=== PATIENT | female | born 1940 | race Caucasian/White ===

== ENCOUNTER 2020-11-30 12:42 | Observation (INO) ==
--- NOTE | 2020-11-29 11:19 | Anesthesiology Consultation ---
Date of Service November 29, 2020 Assessment & Plan (1) Encounter for pre-operative examination: Chart Review Chart Review: Acceptable Risk for Surgery (pending CBC/UA results and DOS labs ) and Patient NOT seen in Pre Admission Testing Awaiting CBC with diff, electrolytes, UA to result in [facility]. Will order PRP (not done preoperatively) and coags (for PNB- pt on anticoagulation) for DOS Per surgeon's letter of medical necessity 11/29/2020 = " urgent surgery, unable to wait 3 to 4 days for Covid swabankle fracture." Per nursing assessment 11/29/2020, patient denies any recent travel. No known Covid infection in the past 90 days. No known Covid positive contacts or Covid related symptoms. Preop Covid testing done 11/28/2020 at [facility]= results pending. Per [facility]- Covid test results should be back by 11/30/20 (pt was made last case). If Covid results NOT back by patient's hosptial arrival time- would recommend Cepheid test DOS. Pt is low travel risk. Will leave to anesthesiologist discretion if additional PPE and/or surgery time needed. Last seen by cardiology 09/15/2020 = patient presents for follow-up. Feels short of breath especially if rushed around. 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 A. fib/flutter diagnosed 2019on metoprolol and amiodarone. IVCD, hypertension, CALEB on CPAP, HLD, mood disorder, left shoulder arthritis. Cardio feels shortness of breath may be due to her trying to hedrick and patient may need to accept that she needs to take her time. PFTs ordered. Continue current pacemaker checks. Continue current medication. Follow-up in 1 year. History Surgery Operation Date: 11/30/20 15:30 Proposed Procedures p Right Open Reduction Internal Fixation Ankle - Hernesto Lowe MD Height/Weight Height: 5 ft 3 in Weight: 86.183 kg Allergies Allergy/AdvReac Type Severity Reaction Status Date / Time amoxicillin Allergy Intermediate HIVES Verified 11/29/20 10:39 nitrofurantoin AdvReac Mild GI UPSET Verified 11/29/20 10:39 Medications Home Medications Medication Instructions Recorded Confirmed Last Taken cholecalciferol (vitamin D3) 50 2,000 unit PO QAM tab 05/21/19 11/29/20 Unknown mcg (2,000 unit) tablet clotrimazole-betamethasone 1 1 applic TOPICAL .APPLY 05/21/19 11/29/20 Unknown %-0.05 % topical cream DIRECTED. #1 gm atorvastatin 10 mg tablet 10 mg PO HS 06/23/19 11/29/20 Unknown amiodarone 200 mg tablet 200 mg PO QAM 03/15/20 11/29/20 Unknown metoprolol tartrate 25 mg tablet 12.5 mg PO QAM tab 03/15/20 11/29/20 Unknown sertraline 25 mg tablet 25 mg PO QAM 03/15/20 11/29/20 Unknown lisinopril 20 mg tablet 40 mg PO QAM tab 07/04/20 11/29/20 Unknown apixaban [Eliquis] 5 mg PO BID 11/29/20 11/29/20 Unknown famotidine 20 mg PO DAILY PRN 11/29/20 11/29/20 Unknown oxycodone-acetaminophen [Percocet] 1 tab PO Q4H PRN 11/29/20 11/29/20 Unknown Past Medical History Medical History (Updated 11/29/20 @ 11:41 by Jillian Benton PA-C) Anxiety Atrial fibrillation On Eliquis Cardiac murmur 2018 ECHO showed mild to moderate TR - otherwise no significant issues GERD (gastroesophageal reflux disease) Hypercholesterolemia Hypertension Osteoarthritis Pacemaker INSERTED JUNE 2019 (DR. PANCHAL/TANGELA) SECONDARY TO SSS AND TACHY/AL SYNDROME Sleep apnea CPAP Spinal stenosis Past Family History Family History Other No family history of adverse response to anesthesia No pertinent family history Past Surgical History Surgical History History of appendectomy History of cardiac cath NO STENTS History of carpal tunnel release RT History of cataract surgery RT/LEFT History of cholecystectomy History of colonoscopy History of dilatation and curettage History of esophagogastroduodenoscopy (EGD) History of total knee replacement RT/LEFT Social History Smoking Status: Former smoker tobacco type: cigarettes Do You Dip or Chew Tobacco: No Smoking End Date: Hx Alcohol Use: Yes Alcohol type: wine alcohol intake frequency: a few times a month substance use type: does not use Testing Electrocardiogram Date: 11/29/20 Atrial paced rhythm at 63 bpm. Left axis deviation. LVH. Cannot rule out septal infarct (cited on or before August 13, 2019). Possible lateral infarct, age undetermined. When compared to EKG from July 21, 2020no significant changes found per cardio (By personal visual inspection- similar in appearance to 03/24/19 EKG- had subsequent stress test and cath) Chest X-Ray Date: 11/29/20 Findings: + NAD Lungs well expanded without evidence of pneumothorax or pleural effusion. No focal parenchymal consolidation. No pulmonary vascular congestion. Radiographic appearance of cardiomediastinal silhouette and osseous thorax stable. Thoracic aorta atherosclerotic and tortuous. Left cardiac pacemaker present with distal electrode leads in stable position. Echocardiogram Date: 05/21/19 EF: 58% Other Findings: + LVH (Mild/concentric) and + diastolic dysfunction (Grade 1) Left atrium mildly enlarged. Right atrium mildly enlarged. Mild aortic valve sclerosis is presentaortic stenosis is absent. Mitral valve leaflets thickness is mildly increased. Mitral stenosis is absent. Mild to moderate TR. Proximal ascending thoracic aorta is mildly enlarged (3.9 cm). PASP 30.1 mmHg. Stress Test Date: 03/13/19 Type: nuclear Abnormal combined low intensity exercise/pharmacological nuclear stress test. Small size reversible perfusion defect encompassing the apical segment of the anterior wall and the LV apex consistent with ischemia in the distal LAD co ronary artery territory. Gated SPECT imaging reveals mild apical hypokinesis. LVEF 69%. Stress EKG was negative for ischemia. (Had subsequent cardiac cath with no CAD noted) Cardiac Catheterization Date: 04/08/19 Coronary arteries are angiographically normal. Left ventricular end-diastolic pressure was normal. Recommendations: Continue medical management. Pulmonary Function Test Date: 10/05/20 Prebronchodilator FEV1 to be normal at 95% of predicted (1.74 L), FVC is normal at 85% of predicted (2.06 L). FEV1/FVC ratio is normal. There is no bronchodilator studies. Small airways: The flow of air at 25-70% of vital capacity is normal. Conclusion: The results are within normal limits. Other Testing Pacemaker check 08/24/2020 = Medtronic pacemaker. Implanted 06/04/2019. Atrial paced 100%. RV paced 0%. Battery life: Estimated longevity 12.3 years. Mode AAIR/DDDR. Summary: Normal dual-chamber pacemaker function. Follow-up in 3 months for recheck.
--- NOTE | 2020-11-29 19:18 | History & Physical Report ---
Date of Service November 29, 2020 Assessment & Plan (1) Ankle fracture: Patient has a displaced distal fibula fracture. Treatment options were discussed and surgical intervention recommended. Risks, benefits and alternatives to surgery including but not limited to infection, DVT, pain, stiffness, need for revision surgery, damage to blood vessels, damage to nerves, PE, , were discussed with the patient and they wish to proceed. Plan for ORIF right distal fibula fracture at [facility] on 11/30/20. She is on Eliquis will be held for at least 48 hours prior to surgery. All questions answered. She will follow up post operatively. Encounter type: initial encounter Fracture type: closed Laterality: right Qualified Code(s): S82.891A - Other fracture of right lower leg, initial encounter for closed fracture History of Present Illness Chief Complaint: Right ankle pain Primary Care Provider: Raudel Bella MD Patient is an 80 year old female with PMHx significant for a-fib, anxiety, HTN, high cholesterol, CALEB, pace maker secondary to SSS and tachy/juvencio syndrome, and murmur who presents to office after sustaining a fall and twisting injury. She went to [facility] ED where x-rays demonstrated a displaced distal fibula fracture. Patient denies headaches, sweats, fevers, chills, double vision, blurred vision, cough, sore throat, dysphagia, chest pain, sob, wheezing, n/v/d/c, numbness, tingling, fatigue, urinary symptoms, mood disorders. ROS positive for right ankle pain and stiffness. Allergies Allergy/AdvReac Type Severity Reaction Status Date / Time amoxicillin Allergy Intermediate HIVES Verified 11/29/20 10:39 nitrofurantoin AdvReac Mild GI UPSET Verified 11/29/20 10:39 Home Medications Medication Instructions Recorded Confirmed Type cholecalciferol (vitamin D3) 50 2,000 unit PO QAM tab 05/21/19 11/29/20 History mcg (2,000 unit) tablet clotrimazole-betamethasone 1 1 applic TOPICAL .APPLY 05/21/19 11/29/20 History %-0.05 % topical cream DIRECTED. #1 gm atorvastatin 10 mg tablet 10 mg PO HS 06/23/19 11/29/20 History amiodarone 200 mg tablet 200 mg PO QAM 03/15/20 11/29/20 History metoprolol tartrate 25 mg tablet 12.5 mg PO QAM tab 03/15/20 11/29/20 History sertraline 25 mg tablet 25 mg PO QAM 03/15/20 11/29/20 History lisinopril 20 mg tablet 40 mg PO QAM tab 07/04/20 11/29/20 History apixaban [Eliquis] 5 mg PO BID 11/29/20 11/29/20 History famotidine 20 mg PO DAILY PRN 11/29/20 11/29/20 History oxycodone-acetaminophen [Percocet] 1 tab PO Q4H PRN 11/29/20 11/29/20 History Past Med/Surg History Medical History (Updated 11/29/20 @ 19:14 by Raffaele Cooper) Anxiety Atrial fibrillation On Eliquis Cardiac murmur 2018 ECHO showed mild to moderate TR - otherwise no significant issues GERD (gastroesophageal reflux disease) Hypercholesterolemia Hypertension Osteoarthritis Pacemaker INSERTED JUNE 2019 (DR. PANCHAL/TANGELA) SECONDARY TO SSS AND TACHY/JUVENCIO SYNDROME Sleep apnea CPAP Spinal stenosis Surgical History History of appendectomy History of cardiac cath NO STENTS History of carpal tunnel release RT History of cataract surgery RT/LEFT History of cholecystectomy History of colonoscopy History of dilatation and curettage History of esophagogastroduodenoscopy (EGD) History of total knee replacement RT/LEFT Family History Other No family history of adverse response to anesthesia No pertinent family history Social History (Updated 07/04/20 @ 11:30 by Margo Plaza) Smoking Status: Former smoker Smoking End Date: ; Second Hand Exposure: Yes (IN THE PAST); Do You Dip or Chew Tobacco: No; Tobacco Cessation Education Requested by Patient: No Hx Alcohol Use: Yes Alcohol type: wine Preferred Language: [place] Java Xml Developer Required: No Beliefs That Will Affect Care: None Current Living Situation: Alone Feels Safe at Home: Yes Safety Concerns: Feels Safe At This Time Assistive Devices: Glasses and Walker Review of Systems All systems reviewed & are unremarkable except as noted in HPI & below Physical Exam Constitutional: well developed and well nourished; no acute distress Eyes: PERRL, conjunctivae normal, anicteric sclerae ENMT: external ear and nose normal, oropharynx normal Neck: trachea midline, no thyromegaly Respiratory: normal respiratory effort, lungs clear to auscultation Cardiovascular: Rate/Rhythm: regular rate and regular rhythm Heart Sounds: + murmur (2/6 systolic murmur) Extremities: no edema Musculoskeletal: Right ankle: Mild to moderate swelling and ecchymosis right ankle. Distal pulses palpable. ROM not tested due to known fx. Toes are mobile and sensation intact. Skin: no rashes, warm and dry Neurologic: patellar DTR's 2+ bilat, sensation intact Psychiatric: A+Ox3, euthymic affect Results & Data ([facility]) Diagnostic Findings Right ankle radiographs: Displaced distal fibula fracture, widening medial clear space. Syndesmosis appears intact on radiographs.
[~2020-11-30 12:42] MED LIST: BUPIVACAINE 0.25% 30 ML VIAL ONE; DEXAMETHASONE SOD INJ 4 MG/ML VIAL ONE; EPINEPHrine INJ 1 MG/ML AMP ONE; LIDOCAINE 2% 2 ML VIAL/AMP(20MG/ML) INFIL ONE; LR 15ML/HR IV SCH; ONDANSETRON INJ 2 MG/ML 2 ML VIAL ONE; PROPOFOL IV EMULSION 10 MG/ML 20 ML VIAL IV ONE; fentaNYL citrate 100 MCG/2 ML VIAL ONE
[2020-11-30] MEDS ORDERED: CLINDAMYCIN PHOS 300 MG/2 ML VIAL IV ONE (13:16)
[2020-11-30] MEDS ORDERED: CLINDAMYCIN 600 MG/54 ML BAG IV ONE (13:30)
[2020-11-30 13:46] LABS: BUN Creatinine Ratio 25.7 (10-20); Creatinine Clr Calc Pharmacy 44.7 ml/min; Est GFR (Non-African American) 51.8; Potassium 4.5 mmol/L (3.5-5.1)
[2020-11-30] MEDS ORDERED: ONDANSETRON INJ 2 MG/ML 2 ML VIAL IV PRN ×2 (15:03→19:36)
[2020-11-30] MEDS ORDERED: fentaNYL citrate 100 MCG/2 ML VIAL IV PRN (15:03)
[2020-11-30] MEDS ORDERED: PROMETHAZINE HCL 6.25 MG in SODIUM CHLORIDE 0.9% 50 ML IV PRN (15:03)
[2020-11-30] MEDS ORDERED: ePHEDrine sulfate 50 MG/ML AMP IV PRN (15:03)
[2020-11-30] MEDS ORDERED: ATROPINE SULFATE 0.1 MG/ML 10ML SYR IV PRN (15:03)
[2020-11-30] MEDS ORDERED: BACITRACIN INJ 50,000 UNIT VIAL ONE (15:44)
[2020-11-30] MEDS ORDERED: MIDAZOLAM HCL 1 MG/ML 2ML VIAL ONE (15:46)
--- NOTE | 2020-11-30 15:47 | History & Physical Bridge Note ---
Date of Service November 30, 2020 History & Physical Bridge Note I have examined the patient, reviewed the History & Physical and in the interval since the performance of the History & Physical I have noted the following changes of clinical significance: no changes noted
[2020-11-30] MEDS ORDERED: ROPIVACAINE 0.5% 5 MG/ML 30 ML VIAL ONE (15:55)
[2020-11-30] MEDS ORDERED: BUPIVACAINE/EPINEPHRINE 0.5% MPF 1:200,000 30 ML VIAL ONE (16:01)
--- NOTE | 2020-11-30 18:06 | Post Operative Brief Note ---
Immediate Post Op Note v1 Date of Surgery November 30, 2020 Pre & Post Diagnosis Operation Date: 11/30/20 15:30 Pre-Op Diagnosis: Right Ankle Fracture distal fibula fracture with deltoid ligament tear and widened mortise Post-Op Diagnosis: Same I identified the patient and participated in the time-out.: Yes Procedure Operation Date: 11/30/20 15:30 Actual Procedures p Right Open Reduction Internal Fixation distal fibula Ankle(Right) - Hernesto Lowe MD Surgeon Hernesto Lowe MD Banquet Set Up Person Renny ZHU Estimated Blood Loss 4 Findings Consistent with Post-Op Diagnosis Specimens None Anesthesia Type General Regional Complications none Disposition Accompanied Patient To Recovery: No Disposition: Recovery Room Overlapping Procedure I was immediately available: during the entire case.
--- NOTE | 2020-11-30 18:33 | Anesthesiology Progress Note ---
Date of Service November 30, 2020 Anesthesia Post Procedure Vital Signs Vital Signs: Temp Pulse Pulse Resp BP Pulse Ox 11/30/20 18:25 60 17 126/66 96 11/30/20 18:15 61 17 130/53 L 100 11/30/20 18:05 60 18 116/61 100 11/30/20 17:56 36.7 C 68 20 120/78 100 11/30/20 13:23 36.9 C 69 20 142/88 H 98 Pain Intensity Right Ankle: Pain Intensity: 2 Transfer of Care Handoff Completed per policy Notes Mental Status: alert / awake / arousable Patient Amnestic to Procedure: Yes Nausea / Vomiting: adequately controlled Pain: adequately controlled Airway Patency, RR, SpO2: stable & adequate BP & HR: stable & adequate Hydration State: stable & adequate Anesthetic Complications: no major complications apparent and Pt Satisfied with anesthetic care
--- NOTE | 2020-11-30 18:41 | Fluoroscopy Report ---
FL ankle RT min 3V RTN CLINICAL HISTORY: Fracture COMPARISON STUDY: None FLUOROSCOPY TIME: 3 seconds. NUMBER OF FLUOROSCOPIC IMAGES: 3 FINDINGS: 3 intraoperative fluoroscopic spot images demonstrate a lateral distal fibular metallic chen te with 10 screws. The reported fracture is difficult to visualize on these intraoperative fluoroscop ic spot radiographs. IMPRESSION: Internally fixated distal fibular fracture in anatomic alignment ACT 112: Negative or not required by law. Electronically signed by: Scot Blunt M.D. 11/30/2020 6:40 PM
[2020-11-30] MEDS ORDERED: NALOXONE HCL 0.4 MG/1 ML VIAL/CARP IV PRN (19:36)
[2020-11-30] MEDS ORDERED: HYDROmorphone INJ 0.5 MG/0.5 ML SYR IV PRN (19:36)
[2020-11-30] MEDS ORDERED: FAMOTIDINE 20 MG TAB PO PRN (19:36)
[2020-11-30] MEDS ORDERED: METOCLOPRAMIDE HCL INJ 5 MG/ML 2 ML VIAL IV PRN (19:36)
[2020-11-30] MEDS ORDERED: MAGNESIUM HYDROXIDE SUSP 30 ML UDC PO PRN (19:36)
[2020-11-30] MEDS ORDERED: bisacodyL 10 MG SUPP PR PRN (19:36)
[2020-11-30] MEDS: SODIUM CHLORIDE 0.9% 1000ML 1,000 ML IV SCH (19:56)
[2020-11-30] MEDS: ATORVASTATIN 10 MG TAB PO SCH (21:32)
[2020-11-30] MEDS: SENNA 8.6 MG TAB PO SCH (21:32)
[2020-11-30] MEDS: ACETAMINOPHEN 500 MG TAB PO SCH (21:32)
[2020-11-30] MEDS: DOCUSATE SODIUM 100 MG CAP PO SCH (21:32)
[2020-11-30] MEDS: CLINDAMYCIN 600 MG in DEXTROSE 5% 50 ML IV SCH (23:15)
--- NOTE | 2020-12-01 02:27 | Operative Report (OR) ---
DATE OF OPERATION: 11/30/2020 INDICATION FOR PROCEDURE: The patient is an 80-year-old female who injured her right ankle. She sustained a closed right ankle fracture. Radiographs demonstrate she has a displaced short oblique fibular fracture with widened mortise medially consistent with deltoid ligament disruption. PREOPERATIVE DIAGNOSIS: Displaced right ankle fracture, distal fibula with deltoid ligament injury medial ankle with widening of the mortise. POSTOPERATIVE DIAGNOSIS: Displaced right ankle fracture, distal fibula with deltoid ligament injury medial ankle with widening of the mortise. PROCEDURE: Open reduction and internal fixation of fibular fracture with a Synthes locking plate and screw fixation. SURGEON: Hernesto Lowe MD STAMP CLERK: Raffaele Cooper PA-C ANESTHESIA: General with regional block. COMPLICATIONS: None. ESTIMATED BLOOD LOSS: 4 mL. SPECIMENS: None. DRAINS: None. OPERATIVE PROCEDURE: The patient was taken to the operating room after regional block anesthetic was placed and she was placed under general anesthetic. Her splints were taken down. She was noted to have some smaller fracture blisters in the area of the fracture along the lateral side of her ankle area. None of these were disrupted at all. There was no skin necrosis. Circulation was intact. There was mild to moderate swelling only. The ankle was grossly unstable. Pneumatic tourniquet was placed about her right upper thigh. Right lower extremity was prepped and draped with ChloraPrep. We used fluoroscopy throughout the case as needed using the C-arm. Leg was elevated, exsanguinated with Esmarch bandage. Pneumatic tourniquet was raised to 325 mmHg. A longitudinal incision was made over the lateral fibula. Skin was incised sharply. The subcutaneous flaps were elevated off the fracture site. There was displaced short oblique fibular fracture with the fracture being at the level of the tibial plafond. The blood clot was irrigated out. Some limited periosteal elevation was performed to reduce the fracture anatomically. A bone reduction clamp was placed holding the reduction anatomically and this was visualized by fluoroscopy to be anatomically aligned and the mortise was lined up anatomically, so we did not have to do any deltoid ligament procedure. A Synthes 5-hole shaft fibular locking plate was contoured to the lateral fibula. The initial screw placement was proximal with a 3.5 cortical lag screw lagging the plate to the shaft. Then the 2.7 mm locking screws were all placed in. There were one 10 mm, one 14 mm, three 16 mm locking screws. Then two 14 mm and one 12 mm, 3.5 mm locking screws were placed proximally and 1 final 3.5 cortex screw was placed just proximal to the fracture. The reduction was anatomic. The mortise was anatomic. The wound was irrigated. The subcutaneous tissues were closed with 2-0 Vicryl suture and the skin was closed with 3-0 nylon vertical mattress sutures. Xeroform dressings were applied covering the incision and all the fracture blister areas. Sterile dressings were applied and tourniquet was let down and a posterior and sugar tong splints were placed about the ankle. The ankle was held in slight inversion and neutral 90-degree position of the foot. The patient had good capillary refill in bilateral extremities at the completion of the procedure and the patient tolerated the procedure well. AUDRA Rosales was my first aid nurse throughout the procedure. He assisted in soft tissue retraction and placed the dressings on and splints at the end of the procedure and will participate in the postoperative care of the patient. I attest to the content of the Intraoperative Record and any orders documented therein. Any exception s are noted below.
[2020-12-01] MEDS: ACETAMINOPHEN 500 MG TAB PO SCH ×3 (06:25→20:56)
[2020-12-01] MEDS: SODIUM CHLORIDE 0.9% 1000ML 1,000 ML IV SCH (06:26)
[2020-12-01] MEDS ORDERED: INFLUENZA VACCINE HIGH DOSE 65+ 0.7 ML SYR IM ONE (06:45)
[2020-12-01] MEDS: CLINDAMYCIN 600 MG in DEXTROSE 5% 50 ML IV SCH (07:33)
[2020-12-01 07:37] LABS: Hematocrit (blood only) 37.3 % (37-47); Hemoglobin 11.9 g/dL (12.0-16.0); Mean Corpuscular Hemoglobin 31.6 pg (25-34); Mean Corpuscular Hgb Conc 31.9 g/dL (32-36); Mean Corpuscular Volume 99.2 fL (80-100); Mean Platelet Volume 10.6 fL (7.4-10.4); Platelet Count 192 K/uL (130-400); RDW Coefficient of Variation 14.2 % (11.5-14.5); RDW Standard Deviation 51.1 fL (36.4-46.3); Red Blood Count 3.76 M/uL (4.2-5.4); White Blood Count 4.83 K/uL (4.8-10.8)
[2020-12-01 08:02] LABS: BUN Creatinine Ratio 23.5 (10-20); Calcium 9.9 mg/dl (8.5-10.1); Creatinine Clr Calc Pharmacy 49.4 ml/min; Est GFR (Non-African American) 59.5; Potassium 4.1 mmol/L (3.5-5.1)
--- NOTE | 2020-12-01 08:20 | Hospitalist Consultation ---
Date of Consultation December 01, 2020 Assessment & Plan (1) Ankle fracture: POD#1 s/p RIGHT ORIF with Dr. Lowe. EBL 4 PT/OT/pain management/DVT prophylaxis per primary service (2) Hypertension: Chronic. BP 147/80 Continue lisinopril 40mg, metoprolol 12.5mg (3) Hypercholesterolemia: Continue atorvastatin 10mg HS (4) Atrial fibrillation: EKG pre-op atrial paced, no changed from July 2020 Eliquis 5mg BID (5) CALEB (obstructive sleep apnea): (6) Pacemaker: noted -- secondary to SSS (7) Anxiety: Continue sertraline 25mg daily (8) DVT prophylaxis: Eliquis as above for hx afib History of Present Illness Reason for Consultation: medical management Attending Physician: Hernesto Lowe MD Allergies Allergy/AdvReac Type Severity Reaction Status Date / Time amoxicillin Allergy Intermediate HIVES Verified 11/30/20 13:10 nitrofurantoin AdvReac Mild GI UPSET Verified 11/30/20 13:10 Home Medications Medication Instructions Recorded Confirmed Type cholecalciferol (vitamin D3) 50 2,000 unit PO QAM tab 05/21/19 11/30/20 History mcg (2,000 unit) tablet clotrimazole-betamethasone 1 1 applic TOPICAL .APPLY 05/21/19 11/30/20 History %-0.05 % topical cream DIRECTED. #1 gm atorvastatin 10 mg tablet 10 mg PO HS 06/23/19 11/30/20 History amiodarone 200 mg tablet 200 mg PO QAM 03/15/20 11/30/20 History metoprolol tartrate 25 mg tablet 12.5 mg PO QAM tab 03/15/20 11/30/20 History sertraline 25 mg tablet 25 mg PO QAM 03/15/20 11/30/20 History lisinopril 20 mg tablet 40 mg PO QAM tab 07/04/20 11/30/20 History apixaban [Eliquis] 5 mg PO BID 11/29/20 11/30/20 History famotidine 20 mg PO DAILY PRN 11/29/20 11/30/20 History oxycodone-acetaminophen [Percocet] 1 tab PO Q4H PRN 11/29/20 11/30/20 History Patient History Medical History (Updated 12/01/20 @ 08:19 by Belkys Ochoa PA-C) Anxiety Atrial fibrillation On Eliquis Cardiac murmur 2018 ECHO showed mild to moderate TR - otherwise no significant issues GERD (gastroesophageal reflux disease) Hypercholesterolemia Hypertension Osteoarthritis Pacemaker INSERTED JUNE 2019 (DR. PANCHAL/TANGELA) SECONDARY TO SSS AND TACHY/AL SYNDROME Sleep apnea CPAP Spinal stenosis Surgical History History of appendectomy History of cardiac cath NO STENTS History of carpal tunnel release RT History of cataract surgery RT/LEFT History of cholecystectomy History of colonoscopy History of dilatation and curettage History of esophagogastroduodenoscopy (EGD) History of total knee replacement RT/LEFT Family History Other No family history of adverse response to anesthesia No pertinent family history Social History (Updated 07/04/20 @ 11:30 by Margo Plaza) Smoking Status: Former smoker Smoking End Date: ; Second Hand Exposure: Yes (IN THE PAST); Do You Dip or Chew Tobacco: No; Tobacco Cessation Education Requested by Patient: No Hx Alcohol Use: Yes Alcohol type: wine Preferred Language: Citizen Of [place] Wheel Cleaner Required: No Beliefs That Will Affect Care: None Current Living Situation: Alone Feels Safe at Home: Yes Safety Concerns: Feels Safe At This Time Assistive Devices: Walker and Wheelchair Results & Data Results & Data ([facility]) Vital Signs (Past 12 Hours) Vital Signs Temp Pulse Resp BP Pulse Ox 12/01/20 07:20 36.4 C L 60 18 147/80 H 96 12/01/20 03:10 36.6 C 61 16 118/74 96 11/30/20 22:30 36.8 C 61 16 110/69 95 11/30/20 21:30 36.6 C 63 16 130/67 98 11/30/20 20:30 36.8 C 78 16 155/81 H 100 PG Care Time/CCT Total # of Minutes Spent Total Time Spent with Patient: Total time spent is greater than 50% in coord ination of care (as documented) at patient's floor/unit and/or counseling patient: Coding Diagnoses Ankle fracture S82.891A Encounter type: initial encounter Fracture type: closed Laterality: right Hypertension I10 Hypercholesterolemia E78.00 Atrial fibrillation I48.91 CALEB (obstructive sleep apnea) G47.33 Pacemaker Z95.0 Anxiety F41.9 DVT prophylaxis Z29.9 (1) Ankle fracture Encounter type: initial encounter Fracture type: closed Laterality: right Qualified Code(s): S82.891A - Other fracture of right lower leg, initial encounter for closed fracture
[2020-12-01] MEDS: AMIODARONE 200 MG TAB PO SCH (08:33)
[2020-12-01] MEDS: METOPROLOL TARTRATE 25 MG TAB PO SCH (08:34)
[2020-12-01] MEDS: MULTIVITAMIN TAB PO SCH (08:35)
[2020-12-01] MEDS: CHOLECALCIFEROL 1,000 UNITS 25 MCG TAB PO SCH (08:35)
[2020-12-01] MEDS: SERTRALINE HCL 50 MG TABLET PO SCH (08:35)
[2020-12-01] MEDS: lisinopril 40 MG TAB PO SCH (08:35)
[2020-12-01] MEDS: DOCUSATE SODIUM 100 MG CAP PO SCH ×2 (08:36→20:54)
--- NOTE | 2020-12-01 08:49 | Anesthesiology Progress Note ---
Date of Service December 01, 2020 Anesthesia Post Procedure Vital Signs Vital Signs: Temp Pulse Pulse Pulse Resp BP Pulse Ox 12/01/20 07:20 36.4 C L 60 18 147/80 H 96 12/01/20 03:10 36.6 C 61 16 118/74 96 11/30/20 22:30 36.8 C 61 16 110/69 95 11/30/20 21:30 36.6 C 63 16 130/67 98 11/30/20 20:30 36.8 C 78 16 155/81 H 100 11/30/20 20:00 36.7 C 61 16 146/76 H 100 11/30/20 19:30 36.8 C 61 16 125/77 100 11/30/20 19:05 60 18 111/69 100 11/30/20 18:55 60 19 125/67 100 11/30/20 18:45 36.4 C L 61 20 131/70 100 11/30/20 18:35 63 19 130/48 L 96 11/30/20 18:25 60 17 126/66 96 11/30/20 18:15 61 17 130/53 L 100 11/30/20 18:05 60 18 116/61 100 11/30/20 17:56 36.7 C 68 20 120/78 100 11/30/20 13:23 36.9 C 69 20 142/88 H 98 Pain Intensity Right Ankle: Pain Intensity: 0 Notes Mental Status: alert / awake / arousable and participated in evaluation Patient Amnestic to Procedure: Yes Nausea / Vomiting: adequately controlled Pain: adequately controlled Airway Patency, RR, SpO2: stable & adequate BP & HR: stable & adequate Hydration State: stable & adequate Anesthetic Complications: no major complications apparent
--- NOTE | 2020-12-01 09:11 | Orthopedic Progress Note ---
Date of Service December 01, 2020 Assessment & Plan (1) Ankle fracture: Postop day 1 status post ORIF right ankle PT/OT protocols. Nonweightbearing on the right lower extremity. DVT prophylaxis-restarting patient's apixaban today, SCDs, ELIAS gaspar. Pain management as written. DC planning-[place] planning [place] has a manner upon discharge. Will await input from case management for arrangements. Admission and Anticipated Discharge Date Admission Date: November 30, 2020 Supervising Physician Co-Signing Physician Notes Patient seen and examined. Agree with AUDRA Green's note as above. Pain is well controlled. Nerve block is just starting to wear off. Plan [facility]. Subjective Postop day 1 Patient sitting up in bed this morning awake and alert. She states that her block is still working and that she is starting to get some feeling back in her toes. Pain is controlled. Denies shortness of breath, chest pain, lightheadedness. She discussed that she is planning on going to [facility] for further PT and OT and care upon discharge. Physical Exam Physical Exam: Splint/dressing is clean, dry, and intact. Toes are pink and warm with good cap refill. She has some slight motion to her second and third toes at this time. Sensation is still decreased from the nerve block that she had for preop. Results & Data ([facility]) Vital Signs (Past 12 Hours) Vital Signs Temp Pulse Resp BP Pulse Ox 12/01/20 07:20 36.4 C L 60 18 147/80 H 96 12/01/20 03:10 36.6 C 61 16 118/74 96 11/30/20 22:30 36.8 C 61 16 110/69 95 11/30/20 21:30 36.6 C 63 16 130/67 98 Laboratory Results Laboratory Results WBC 4.83 K/uL (4.8-10.8) 12/01/20 06:52 RBC 3.76 M/uL (4.2-5.4) L 12/01/20 06:52 Hgb 11.9 g/dL (12.0-16.0) L 12/01/20 06:52 Hct 37.3 % (37-47) 12/01/20 06:52 MCV 99.2 fL (80-100) 12/01/20 06:52 MCH 31.6 pg (25-34) 12/01/20 06:52 MCHC 31.9 g/dL (32-36) L 12/01/20 06:52 RDW Std Deviation 51.1 fL (36.4-46.3) H 12/01/20 06:52 RDW Coeff of Nancy 14.2 % (11.5-14.5) 12/01/20 06:52 Plt Count 192 K/uL (130-400) 12/01/20 06:52 MPV 10.6 fL (7.4-10.4) H 12/01/20 06:52 Sodium 140 mmol/L (136-145) 12/01/20 06:52 Potassium 4.1 mmol/L (3.5-5.1) 12/01/20 06:52 Chloride 110 mmol/L (98-107) H 12/01/20 06:52 Carbon Dioxide 27 mmol/L (21-32) 12/01/20 06:52 Anion Gap 3.0 (3-11) 12/01/20 06:52 BUN 21 mg/dl (7-18) H 12/01/20 06:52 Creatinine 0.90 mg/dl (0.6-1.2) 12/01/20 06:52 Est Cr Clr Drug Dosing 49.4 ml/min 12/01/20 06:52 Est GFR ( Amer) 69.0 12/01/20 06:52 Est GFR (Non-Af Amer) 59.5 12/01/20 06:52 BUN/Creatinine Ratio 23.5 (10-20) H 12/01/20 06:52 Glucose 138 mg/dl (70-99) H 12/01/20 06:52 Calcium 9.9 mg/dl (8.5-10.1) 12/01/20 06:52 (1) Ankle fracture Encounter type: initial encounter Fracture type: closed Laterality: right Qualified Code(s): S82.891A - Other fracture of right lower leg, initial encounter for closed fracture
--- NOTE | 2020-12-01 09:56 | Consultation ---
Date of Consultation December 01, 2020 Assessment & Plan (1) Ankle fracture: S/P R ankle ORIF POD #1, Dr. Lowe EBL 4ml Pain/wound management per orthopedic Activity and therapy as directed by orthopedics Encourage incentive spirometry Monitor hemoglobin, 11.9 today, preop 12.7, likely dilutional (2) Atrial fibrillation: Rate and rhythm controlled with amiodarone and metoprolol Continue Eliquis for thrombolic prophylaxis (3) Hypertension: Blood pressure controlled Continue metoprolol and lisinopril (4) CALEB (obstructive sleep apnea): CPAP at HS (5) Pacemaker: 2/ to TBS interrogated 12/01 remotely Normal functioning pacemaker (6) Low vitamin D level: vit d 21, hx of hyperparathyroidism, primary never required surg, Ca levels high in 2013, but now have maintained high normal range w/o treatment continue vit d supplementation, but cautiously recommend routine bmp monitoring by PCP as outpt (7) GERD (gastroesophageal reflux disease): pepcid prn (8) Sebaceous cyst: not acutely infected located on posterior thorax, upper / discussed with pt who will set up follow up with dermatology as outpt - has followed them in past for it cyst now getting bigger, cratered center, half erythematous, nontender - recommend removal at pt convenience (9) DVT prophylaxis: Emilywinter Patient was seen and examined in collaboration with, Dr. Garcia, please see addendum PCP: Shayne SPEAR Thank you for this consultation. We will follow the patient with you during their hospital stay. You can reach a member of the [facility] Hospitalist Team 01/04 via pager @ [phone] or via hospitalist rudyd text role. Supervising Physician Co-Signing Physician Notes Patient is an 80-year-old female with history of paroxysmal atrial fibrillation, hypertension, hyperlipidemia and other medical problems was seen and examined postop after having right ankle surgery by Dr. Lowe. Patient is doing well postop. She denies any significant pain at surgical site. Also denies any chest pain, dyspnea, dizziness, nausea, abdominal pain. Sitting in chair com fortably during my exam. On exam patient is moderately built and nourished, no apparent distress, normocephalic atraumatic, lungs are clear to auscultation, S1-S2, no murmur, +Pacemaker, Back:+Sebaceous cyst, abdomen soft, nontender, normal bowel sounds, right lower extremity in dressing, no pedal edema, alert, awake, oriented, grossly no focal neurologic deficits. Patient is consulted for postop medical management. Monitor CBC to check for blood loss anemia. Continue incentive spirometry. Continue bowel regimen to prevent constipation. Wound care, activity, DVT prophylaxis as per primary team. Continue amiodarone, metoprolol and Eliquis for atrial fibrillation. Agree with monitoring calcium levels while on vitamin D supplements while treating for vitamin D deficiency given history of hyperparathyroidism. Patient might need further evaluation by dermatology/surgery as outpatient for definitive treatment of sebaceous cyst. I personally reviewed the record. Patient is interviewed and examined at bedside. Patient's care is coordinated with Nanci Michele PA-C. Please refer to the documentation above for details of patient's presentation and for discussion of other issues. History of Present Illness Requesting Physician: Dr. Lowe Reason for Consultation: Postop med management Attending Physician: Hernesto Lowe MD History of Present Illness This is an 80-year-old female who has significant past medical history of PAF on Eliquis, HTN, HLD, TBS status post PPM, GERD, CALEB, hyperparathyroidism who underwent a right ORIF to distal fibula ankle s econdary to right ankle fracture with deltoid ligament tear and widened mortise by Dr. Lowe. Patient sustained a fall when attempting to get into vehicle, slipped and caused an eversion injury. There was no trauma to head or loss of consciousness. Fall was mechanical. She was seen and evaluated on 11/25/2020 at [facility] ER. She tolerated the procedure well. Postoperatively she does complain of pain to the right ankle. She denies any fever, chills, sweats, lightheadedness, dizziness, chest pain, shortness breath, cough, nausea, vomiting, abdominal pain, change in bowel or urinary habits. Of significance patient does have history of PAF in which she is anticoagulated and compliant with Eliquis. She does have history of TBS and has pacemaker in place. She actually underwent pacemaker interrogation today which revealed a normal dual- chamber pacemaker function. Allergies Allergy/AdvReac Type Severity Reaction Status Date / Time amoxicillin Allergy Intermediate HIVES Verified 11/30/20 13:10 nitrofurantoin AdvReac Mild GI UPSET Verified 11/30/20 13:10 Home Medications Medication Instructions Recorded Confirmed Type cholecalciferol (vitamin D3) 50 2,000 unit PO QAM tab 05/21/19 11/30/20 History mcg (2,000 unit) tablet clotrimazole-betamethasone 1 1 applic TOPICAL .APPLY 05/21/19 11/30/20 History %-0.05 % topical cream DIRECTED. #1 gm atorvastatin 10 mg tablet 10 mg PO HS 06/23/19 11/30/20 History amiodarone 200 mg tablet 200 mg PO QAM 03/15/20 11/30/20 History metoprolol tartrate 25 mg tablet 12.5 mg PO QAM tab 03/15/20 11/30/20 History sertraline 25 mg tablet 25 mg PO QAM 03/15/20 11/30/20 History lisinopril 20 mg tablet 40 mg PO QAM tab 07/04/20 11/30/20 History apixaban [Eliquis] 5 mg PO BID 11/29/20 11/30/20 History famotidine 20 mg PO DAILY PRN 11/29/20 11/30/20 History oxycodone-acetaminophen [Percocet] 1 tab PO Q4H PRN 11/29/20 11/30/20 History acetaminophen 1,000 mg PO Q8 14 Days #84 tab 12/01/20 Rx Patient History Medical History Anxiety Atrial fibrillation On Eliquis Cardiac murmur 2018 ECHO showed mild to moderate TR - otherwise no significant issues GERD (gastroesophageal reflux disease) Hypercholesterolemia Hypertension Osteoarthritis Pacemaker INSERTED JUNE 2019 (DR. PANCHAL/TANGELA) SECONDARY TO SSS AND TACHY/AL SYNDROME Sleep apnea CPAP Spinal stenosis Surgical History History of appendectomy History of cardiac cath NO STENTS History of carpal tunnel release RT History of cataract surgery RT/LEFT History of cholecystectomy History of colonoscopy History of dilatation and curettage History of esophagogastroduodenoscopy (EGD) History of total knee replacement RT/LEFT Family History Mother , 74 Hypertension Cancer lymphoma Father , 76 PUD (peptic ulcer disease) Asthma Social History Smoking Status: Former smoker Smoking End Date: ; Second Hand Exposure: Yes (IN THE PAST); Do You Dip or Chew Tobacco: No; Tobacco Cessation Education Requested by Patient: No Hx Alcohol Use: Yes Alcohol type: wine Preferred Language: Kyrgyz Communication Ability: Effective Photograph Finisher Required: No Beliefs That Will Affect Care: None marital status: / Current Living Situation: Alone Feels Safe at Home: Yes Safety Concerns: Feels Safe At This Time Assistive Devices: Walker Review of Systems Review of Systems: All systems reviewed & are unremarkable except as noted in HPI & below Physical Exam Physical Exam: Constitutional: WD/WN, vitals as above, NAD, sitting up in bed, pleasant, conversing easily Head: Normocephalic, Atraumatic Eyes: PERRL, conjunctivae normal, anicteric sclerae ENMT: external ear and nose normal, oropharynx normal Neck: trachea midline, no thyromegaly normal visual inspection Respiratory: normal respiratory effort, lungs clear to auscultation, no wheeze, rales, rhonchi. Normal insp/exp effort, no accessory muscle use Cardiovascular: RRR, no murmur, no edema Vessels: no JVD or carotid bruit Chest: normal inspection of chest Abdomen: normal bowel sounds, soft, nontender, no hepatosplenomegaly Musculoskeletal: no cyanosis or clubbing, RLE dressing CDI, NVI distally, no edema to LLE +varicosities Skin: Sebaceous cyst to middle aspect of upper posterior thorax, inferior half red but not warm, mobile, soft, proximal portion with cratered center, no rashes, warm and dry normal turgor Neurologic: PERRL, EOMI, accommodation nl, no face palsy, no dysarthria CN's II-XI intact bilaterally and moves all extremities Psychiatric: A+Ox3, euthymic affect Lymphatic: no cervical or axillary lymphadenopathy : deferred Results & Data ([facility]) Vital Signs (Past 12 Hours) Vital Signs Temp Pulse Resp BP Pulse Ox 12/01/20 07:20 36.4 C L 60 18 147/80 H 96 03/25/21 03:10 36.6 C 61 16 118/74 96 11/30/20 22:30 36.8 C 61 16 110/69 95 Laboratory Results Short CBC 12/01/20 Range/Units 06:52 WBC 4.83 (4.8-10.8) K/uL Hgb 11.9 L (12.0-16.0) g/dL Hct 37.3 (37-47) % Plt Count 192 (130-400) K/uL BMP 11/30/20 12/01/20 13:05 06:52 Sodium 138 140 Potassium 4.5 4.1 Chloride 107 110 H Carbon Dioxide 30 27 BUN 26 H 21 H Creatinine 1.01 0.90 Glucose 101 H 138 H Calcium 10.0 9.9 Diagnostic Findings Ankle Xray: IMPRESSION: Internally fixated distal fibular fracture in anatomic alignment CXR: no acute abnormality Medications Administered Acetaminophen (Acetaminophen 500 Mg Tab) 1,000 mg PO Q8 MALIKA Stop: 12/30/20 21:59 Last Admin: 12/01/20 06:25 Dose: 1,000 mg Documented by: [id number] Admin: 11/30/20 21:32 Dose: 1,000 mg Documented by: [id number] Amiodarone HCl (Amiodarone 200 Mg Tab) 200 mg PO [facility] Stop: 12/31/20 08:59 Last Admin: 12/01/20 08:33 Dose: 200 mg Documented by: [id number] Atorvastatin Calcium (Atorvastatin 10 Mg Tab) 10 mg PO HS MALIKA Stop: 12/30/20 20:59 Last Admin: 11/30/20 21:32 Dose: 10 mg Documented by: [id number] Docusate Sodium (Docusate Sodium 100 Mg Cap) 100 mg PO BID MALIKA Stop: 12/30/20 20:59 Last Admin: 12/01/20 08:36 Dose: 100 mg Documented by: [id number] Admin: 11/30/20 21:32 Dose: 100 mg Documented by: [id number] Lisinopril (Lisinopril 40 Mg Tab) 40 mg PO QAM [facility] Stop: 12/31/20 08:59 Last Admin: 12/01/20 08:35 Dose: 40 mg Documented by: [id number] Metoprolol Tartrate (Metoprolol Tartrate 25 Mg Tab) [facility] Stop: 12/31/20 08:59 Last Admin: 12/01/20 08:34 Dose: 12.5 mg Documented by: [id number] Miscellaneous (*Clotrimazole/Betamethasone*Order Awaiting Action) 1 ea N/A QS [facility] Stop: 12/31/20 07:59 Last Admin: 12/01/20 08:33 Dose: Not Given Documented by: [id number] Multivitamins (Multivitamin Tab) 1 tab [facility] Stop: 12/31/20 08:59 Last Admin: 12/01/20 08:35 Dose: 1 tab Documented by: [id number] Sennosides (Senna 8.6 Mg Tab) 17.2 mg PO HS [facility] Stop: 12/30/20 20:59 Last Admin: 11/30/20 21:32 Dose: 17.2 mg Documented by: [id number] Sertraline HCl (Sertraline Hcl 50 Mg Tablet) 25 mg PO [facility] Stop: 12/31/20 08:59 Last Admin: 12/01/20 08:35 Dose: 25 mg Documented by: [id number] Vitamin D (Cholecalciferol 1,000 Units 25 Mcg Tab) 2,000 units PO [facility] Stop: 12/31/20 08:59 Last Admin: 12/01/20 08:35 Dose: 2,000 units Documented by: [id number] Discontinued Medications Bacitracin (Bacitracin Inj 50,000 Unit Vial) Confirm Administered Dose 50,000 units .ROUTE .STK-MED [facility] Stop: 11/30/20 15:45 Last Admin: 11/30/20 16:53 Dose: Not Given Documented by: [id number] Bupivacaine HCl/Epinephrine Bitart (Bupivacaine/Epinephrine 0.5% Mpf 1:200,000 30 Ml Vial) Confirm Administered Dose 30 ml .ROUTE .STK-MED ONE Stop: 11/30/20 16:02 Last Admin: 11/30/20 16:53 Dose: Not Given Documented by: [id number] Clindamycin Phosphate (Cleocin) 600 mg in 54 mls @ 100 mls/hr IV ONE ONE Stop: 11/30/20 14:02 Last Infusion: 11/30/20 19:39 Dose: 0 mls/hr Documented by: [id number] Admin: 11/30/20 16:00 Dose: 100 mls/hr Documented by: [id number] Lactated Ringer's (Lr) 1,000 mls @ 15 mls/hr IV .Q24H MALIKA Stop: 12/01/20 05:59 Last Infusion: 11/30/20 16:03 Dose: 0 mls/hr Documented by: [id number] Admin: 11/30/20 13:10 Dose: 15 mls/hr Documented by: [id number] Promethazine HCl 6.25 mg/ (Sodium Chloride) 50.25 mls @ 204 mls/hr IV ONCE PRN PRN Reason: PACU Use Only-Nausea/Vomiting Stop: 11/30/20 23:03 Last Infusion: 11/30/20 19:06 Dose: 0 mls/hr Documented by: [id number] Admin: 11/30/20 18:51 Dose: 204 mls/hr Documented by: [id number] Clindamycin Phosphate 600 mg/ (Dextrose) 54 mls @ 100 mls/hr IV Q8H [facility] Stop: 12/01/20 08:33 Last Infusion: 12/01/20 08:11 Dose: 0 mls/hr Documented by: [id number] Admin: 12/01/20 07:33 Dose: 100 mls/hr Documented by: [id number] Infusion: 11/30/20 23:52 Dose: 0 mls/hr Documented by: [id number] Admin: 11/30/20 23:15 Dose: 100 mls/hr Documented by: [id number] Sodium Chloride (Nss 1000ml) 1,000 mls @ 100 mls/hr IV .Q10H [facility] Stop: 12/01/20 06:00 Last Admin: 12/01/20 06:26 Dose: Not Given Documented by: [id number] Infusion: 12/01/20 06:25 Dose: 0 mls/hr Documented by: [id number] Infusion: 11/30/20 23:52 Dose: 100 mls/hr Documented by: [id number] Infusion: 11/30/20 23:16 Dose: 0 mls/hr Documented by: [id number] Admin: 11/30/20 19:56 Dose: 100 mls/hr Documented by: [id number] Influenza Virus Vaccine (Influenza Vaccine High Dose 65+ 0.7 Ml Syr) 0.7 ml IM .ONCE ONE Stop: 12/01/20 06:46 Last Admin: 12/01/20 06:47 Dose: Not Given Documented by: [id number] Ondansetron HCl (Ondansetron Inj 2 Mg/Ml 2 Ml Vial) 4 mg IV ONCE PRN PRN Reason: PACU Use Only-Nausea/Vomiting Stop: 11/30/20 23:03 Last Admin: 11/30/20 18:05 Dose: 4 mg Documented by: [id number] ECG Rate (beats per minute): 63 Findings: + paced rhythm (1) Ankle fracture Encounter type: initial encounter Fracture type: closed Laterality: right Qualified Code(s): S82.891A - Other fracture of right lower leg, initial encounter for closed fracture
[2020-12-01] MEDS: ATORVASTATIN 10 MG TAB PO SCH (20:54)
[2020-12-01] MEDS: SENNA 8.6 MG TAB PO SCH (20:54)
[2020-12-01] MEDS: oxyCODONE HCL IR 5 MG TAB (IMMEDIATE RELEASE) PO PRN (20:55)
[2020-12-01] MEDS: APIXABAN 5 MG TABLET PO SCH (20:55)
[2020-12-02] MEDS: ACETAMINOPHEN 500 MG TAB PO SCH ×2 (06:15→13:17)
--- NOTE | 2020-12-02 07:12 | Orthopedic Progress Note ---
Date of Service December 02, 2020 Assessment & Plan (1) Ankle fracture: Postop day 2 status post ORIF right ankle PT/OT protocols. Nonweightbearing on the right lower extremity. DVT prophylaxis-restarting patient's apixaban today, SCDs, ELIAS gsapar. Pain management as written. [place] planning[place] has [place] manner [place] discharge. Will await input from case management for arrangements. Admission and Anticipated Discharge Date Admission Date: November 30, 2020 Subjective Patient asleep on my arrival. Easily awoken. Has some complaint of right ankle pain otherwise denies complaints. No chest pain, sob, dizziness, headache, fever, chillls Review of Systems Constitutional: as per Subjective / HPI Physical Exam Physical Exam: Right ankle splint is c/d/i. Toes are mobile with cap refill <3s. No calf tenderness. Distally n/v status and sensation are intact. Constitutional: well developed and well nourished; no acute distress Results & Data ([facility]) Vital Signs (Past 12 Hours) Vital Signs Temp Pulse Resp BP Pulse Ox 12/02/20 07:02 36.6 C 54 L 16 151/79 H 95 12/01/20 23:17 36.8 C 78 18 161/83 H 95 (1) Ankle fracture Encounter type: initial encounter Fracture type: closed Laterality: right Qualified Code(s): S82.891A - Other fracture of right lower leg, initial encounter for closed fracture
[2020-12-02] MEDS: DOCUSATE SODIUM 100 MG CAP PO SCH (08:43)
[2020-12-02] MEDS: CHOLECALCIFEROL 1,000 UNITS 25 MCG TAB PO SCH (08:43)
[2020-12-02] MEDS: lisinopril 40 MG TAB PO SCH (08:43)
[2020-12-02] MEDS: APIXABAN 5 MG TABLET PO SCH (08:43)
[2020-12-02] MEDS: MULTIVITAMIN TAB PO SCH (08:44)
[2020-12-02] MEDS: SERTRALINE HCL 50 MG TABLET PO SCH (08:44)
[2020-12-02] MEDS: METOPROLOL TARTRATE 25 MG TAB PO SCH (08:46)
[2020-12-02] MEDS: AMIODARONE 200 MG TAB PO SCH (08:46)
[2020-12-02] MEDS: oxyCODONE HCL IR 5 MG TAB (IMMEDIATE RELEASE) PO PRN (13:19)
--- NOTE | 2020-12-02 14:10 | Hospitalist Progress Note ---
Date of Service December 02, 2020 Assessment & Plan (1) Ankle fracture: Right Ankle Fracture distal fibula fracture with deltoid ligament tear and widened mortise S/P R ankle ORIF by Dr. Lowe POD#2 Pain/wound management per orthopedic Appreciate Orthopedics help Continue Incentive spirometry On apixaban for anticoagulation Continue bowel regimen Constipation (2) Atrial fibrillation: Continue amiodarone, metoprolol Continue Eliquis (3) Hypertension: BP labile likely secondary to pain Continue metoprolol, lisinopril (4) CALEB (obstructive sleep apnea): CPAP at (5) Pacemaker: Secondary to SSS Interrogated 12/01 remotely (6) Low vitamin D level: Cautious use of vitamin D supplements given history of hyperparathyroidism Recommend BMP in 1 week upon discharge to monitor calcium levels (7) GERD (gastroesophageal reflux disease): Continue Pepcid (8) Sebaceous cyst: Does not look to be infected Advised to follow-up with dermatology as outpatient (9) DVT prophylaxis: Eliquis Code status FULL CODE Thank you for this consultation. We will follow the patient with you during their hospital stay. You can reach a member of the [facility] Hospitalist Team 01/04 via pager @ [phone] or via hospitalist tiger text role. Admission and Anticipated Discharge Date Admission Date: November 30, 2020 Subjective Patient is seen and examined at bedside Complains of persistent pain at surgical site Also states having musculoskeletal, pleuritic right-sided chest discomfort with respiration Offers no other complaints Discussed with orthopedics today Review of Systems Review of Systems: All systems reviewed & are unremarkable except as noted in HPI & below Physical Exam Physical Exam: Physical Exam: Vitals signs as noted above General Appearance:Moderately built and nourished, no apparent distress Head: normocephalic, Atraumatic Eyes: normal inspection, EOMI Neck: supple, Trachea midline Respiratory/Chest: Normal breath sounds, CTA, No accessory muscle use Back:+Sebaceous Cyst Cardiovascular: S1, S2, No murmur, +Pacemaker Abdomen/GI:Soft, Non tender, Bowel sounds present Extremities/Musculoskelatal:normal inspection, RLE in dressing, +Edema Neurologic/Psych:AAOX3, grossly no focal neurological deficits Skin: normal color, warm Results & Data Results & Data ([facility]) Vital Signs (Past 12 Hours) Vital Signs Temp Pulse Resp BP Pulse Ox 12/02/20 07:02 36.6 C 54 L 16 151/79 H 95 (1) Ankle fracture Encounter type: initial encounter Fracture type: closed Laterality: right Qualified Code(s): S82.891A - Other fracture of right lower leg, initial encounter for closed fracture
--- NOTE | 2020-12-03 10:42 | Discharge Summary ---
Date of Service December 03, 2020 Admission HPI Per Admitting Provider Patient is an 80 year old female with PMHx significant for a-fib, anxiety, HTN, high cholesterol, CALEB, pace maker secondary to SSS and tachy/juvencio syndrome, and murmur who presents to office after sustaining a fall and twisting injury. She went to [facility] ED where x-rays demonstrated a displaced distal fibula fracture. Patient denies headaches, sweats, fevers, chills, double vision, blurred vision, cough, sore throat, dysphagia, chest pain, sob, wheezing, n/v/d/c, numbness, tingling, fatigue, urinary symptoms, mood disorders. ROS positive for right ankle pain and stiffness. Admission Exam Per Admitting Provider Constitutional: well developed and well nourished; no acute distress Eyes: PERRL, conjunctivae normal, anicteric sclerae ENMT: external ear and nose normal, oropharynx normal Neck: trachea midline, no thyromegaly Respiratory: normal respiratory effort, lungs clear to auscultation Cardiovascular: Rate/Rhythm: regular rate and regular rhythm Heart Sounds: + murmur (2/6 systolic murmur) Extremities: no edema Musculoskeletal: Right ankle: Mild to moderate swelling and ecchymosis right ankle. Distal pulses palpable. ROM not tested due to known fx. Toes are mobile and sensation intact. Skin: no rashes, warm and dry Neurologic: patellar DTR's 2+ bilat, sensation intact Psychiatric: A+Ox3, euthymic affect Principal Diagnosis Right ankle fracture Discharge Exam Constitutional well developed and well nourished; no acute distress Eyes PERRL, conjunctivae normal, anicteric sclerae ENMT external ear and nose normal, oropharynx normal Neck trachea midline, no thyromegaly Respiratory normal respiratory effort, lungs clear to auscultation Cardiovascular Rate/Rhythm: regular rate and regular rhythm Heart Sounds: + murmur (2/6 systolic murmur) Extremities: no edema Skin no rashes, warm and dry Neurologic patellar DTR's 2+ bilat, sensation intact Psychiatric A+Ox3, euthymic affect Discharge Data Allergies Allergy/AdvReac Type Severity Reaction Status Date / Time amoxicillin Allergy Intermediate HIVES Verified 11/30/20 13:10 nitrofurantoin AdvReac Mild GI UPSET Verified 11/30/20 13:10 Consultations 12/01/20 09:27 Consult Hospitalist Routine Procedures Performed Operation Date: 11/30/20 15:30 Actual Procedures p Right Open Reduction Internal Fixation Ankle(Right) - Hernesto Lowe MD Ordered Studies 11/30/20 15:03 US - OR guided needle placemen Routine 11/30/20 15:30 FL ankle RT min 3V RTN Routine FL fluoroscopy <1hr Routine Hospital Course (1) Ankle fracture: Patient presented for same day admission following ORIF right distal fibula fracture on 11/30/20. She tolerated procedure well. The Patient had an uneventful hospital course. Post-operatively, her activity was progressed and well tolerated. They participated in PT. Labs remained stable- lowest hemoglobin recorded: 11.9. Dr. Dipak Garcia of medical service was consulted for medical management during admission. Pain controlled on oral medications. Please refer to daily progress notes and PT notes for complete details. After exam on 12/02/20, patient was felt to be stable for discharge to [facility]. Patient will f/u in the office in about 2 weeks for further evaluation including x-rays and incision check, sooner if having any issues or concerns. postop day 2 status post ORIF right ankle PT/OT protocols. Nonweightbearing on the right lower extremity. DVT prophylaxis-restarting patient's apixaban today, SCDs, ELIAS gaspar. Pain management as written. DC planning-patient is planning for [place] has a manner upon discharge. Will await input from case management for arrangements. Lab Results 11/30/20 12/01/20 12/01/20 Range/Units 13:05 06:52 06:52 WBC 4.83 (4.8-10.8) K/uL RBC 3.76 L (4.2-5.4) M/uL Hgb 11.9 L (12.0-16.0) g/dL Hct 37.3 (37-47) % MCV 99.2 (80-100) fL MCH 31.6 (25-34) pg MCHC 31.9 L (32-36) g/dL RDW Std Deviation 51.1 H (36.4-46.3) fL RDW Coeff of Nancy 14.2 (11.5-14.5) % Plt Count 192 (130-400) K/uL MPV 10.6 H (7.4-10.4) fL Sodium 138 140 (136-145) mmol/L Potassium 4.5 4.1 (3.5-5.1) mmol/L Chloride 107 110 H (98-107) mmol/L Carbon Dioxide 30 27 (21-32) mmol/L Anion Gap 1.0 L 3.0 (3-11) BUN 26 H 21 H (7-18) mg/dl Creatinine 1.01 0.90 (0.6-1.2) mg/dl Est Cr Clr Drug Dosing 44.7 49.4 ml/min Est GFR ( Amer) 60.0 69.0 Est GFR (Non-Af Amer) 51.8 59.5 BUN/Creatinine Ratio 25.7 H 23.5 H (10-20) Glucose 101 H 138 H (70-99) mg/dl Calcium 10.0 9.9 (8.5-10.1) mg/dl 25-OH Vitamin D Total (30-100) ng/ml COVID-19 Eval Order SARS-CoV-2, RNA, NAAT (NEGATIVE) 12/01/20 12/02/20 12/02/20 Range/Units 08:49 13:37 13:37 WBC (4.8-10.8) K/uL RBC (4.2-5.4) M/uL Hgb (12.0-16.0) g/dL Hct (37-47) % MCV (80-100) fL MCH (25-34) pg MCHC (32-36) g/dL RDW Std Deviation (36.4-46.3) fL RDW Coeff of Nancy (11.5-14.5) % Plt Count (130-400) K/uL MPV (7.4-10.4) fL Sodium (136-145) mmol/L Potassium (3.5-5.1) mmol/L Chloride (98-107) mmol/L Carbon Dioxide (21-32) mmol/L Anion Gap (3-11) BUN (7-18) mg/dl Creatinine (0.6-1.2) mg/dl Est Cr Clr Drug Dosing ml/min Est GFR ( Amer) Est GFR (Non-Af Amer) BUN/Creatinine Ratio (10-20) Glucose (70-99) mg/dl Calcium (8.5-10.1) mg/dl 25-OH Vitamin D Total 21.6 L (30-100) ng/ml COVID-19 Eval Order Covid19 IDNow Pending sale to [facility] SARS-CoV-2, RNA, NAAT NEGATIVE (NEGATIVE) Total Time Total Time Spent Total Time Spent (In Minutes): 20 Discharge Plan Discharge Items Patient Disposition: Transfer Snf Fac Reason For Visit: Right Ankle Fracture Discharge Diagnosis: Right ankle fracture Activity: Per Instructions section Weightbearing: Right non-weightbearing Non-emergency contact: Surgeon Call non-emergency contact if: your pain is not controlled, your temperature is above 101.5, your wound has increased redness and your wound has increased drainage Follow-up/Referrals: Hernesto Lowe MD [Surgeon] - (Follow-up in 10 to 14 days from the day of surgery.) Raudel Bella MD [Primary Care Provider] - Diet: Regular Addtl Attending Provider Instructions: * CPAP ORDER: Cpap- 9mm pressure humidity - 5. * ACTIVITY RECOMMENDATIONS: *You will be nonweightbearing on the right lower extremity until told otherwise.. SPECIAL CARE INSTRUCTIONS: * Some drainage onto the dressing is normal and is no cause for alarm. * Some swelling is natural especially after walking. When resting, keep your foot elevated above the level of your heart. * Call the doctor's office at if you notice increased drainage, fever over 101 degrees F. or severe constant pain. BANDAGE: * Leave bandage/cast in place unless otherwise directed. * Keep bandage/cast dry at all times.. FOLLOW UP VISIT: If appointment is not already scheduled: Please call [facility] to make a follow-up appointment after your surgery at . Stand-Alone Forms: My Info Skilled Items Patient informed of condition?: Yes DNR: No Discharge Level of Care: Skilled Communicable Disease: No Discharge Prognosis: Stable Lines: None Urinary Catheter: No Medications and DC Order Prescriptions: New acetaminophen 500 mg Tablet 1,000 mg PO Q8 14 Days Qty: 84 RF: 0 oxycodone 5 mg Tablet 5 mg PO Q4H MDD 6 PRN (Reason: pain) Qty: 20 RF: 0 Continued amiodarone 200 mg tablet 200 mg PO QAM RF: 0 metoprolol tartrate 25 mg tablet 12.5 mg PO QAM RF: 0 sertraline 25 mg tablet 25 mg PO QAM RF: 0 lisinopril 20 mg tablet 40 mg PO QAM RF: 0 clotrimazole-betamethasone 1-0.05 % cream 1 applic topical .APPLY DIRECTED. Qty: 1 RF: 0 cholecalciferol (vitamin D3) 2,000 unit tablet 2,000 unit PO QAM RF: 0 atorvastatin 10 mg tablet 10 mg PO HS RF: 0 Eliquis 5 mg Tablet 5 mg PO BID RF: 0 famotidine 20 mg Tablet 20 mg PO DAILY PRN (Reason: Indigestion) RF: 0 Discontinued oxycodone-acetaminophen [Percocet] 5-325 mg Tablet 1 tab PO Q4H PRN (Reason: Pain) RF: 0 Discharge Orders: Discharge Order (Routine); Ordered 12/02/20 Ordered By: Mark Green Admission Data Admit Date/Time: 11/30/20 18:03 Attending Provider: Hernesto Lowe Admit Provider: Hernesto Lowe Primary Care Provider: Raudel Bella Other Providers: Johnny Salmeron ; Jd Ziegler ; Dipak Garcia Other Interventions: Discharge Summary Assessment (RN) Last Done: 12/02/20 13:43
== END 2020-12-02 18:19 ==
LOC: 3E 12:42 → ASU 12:42